=== PATIENT | male | born 1980 | race Caucasian/White ===

== ENCOUNTER 2024-05-04 08:52 | Outpatient (CLI) | payer OTHER, SELFPAY ==
--- NOTE | 2024-05-23 11:05 | WPDHOMESLEEP ---
Sleep Study - Home Unattended Date of Study: 05/04/24 Ordering Provider: Nadira Madsen, PRIVATE DUTY AIDE Interpreting Provider: Jeannette Cotter, DO Home Sleep Study Type: Watch PAT Height: 1.83 m Weight: 77.111 kg Body Mass Index: 23.0 Neck Circumference (inches): 15.25 [place]: 10 Reason for Sleep Study Daytime hypersomnia Sleep History The patient is a 43-year-old male that had a sleep study ordered by his primary care for evaluation of sleep apnea. The patient admits to excessive daytime sleepiness, trouble maintaining sleep and unwanted behaviors during sleep. The patient does snore loudly. He denies interruptions in breathing while asleep. He does choke or gasp at night. He denies having trouble breathing on his back. He does have morning headaches. He does have a dry or sore mouth/ throat in the morning. He does have nocturnal heartburn. He denies nocturia. He denies having trouble falling asleep. He does have difficulty staying asleep. He denies having trouble returning to sleep if he wakes up throughout the night. He denies any hypnotic or sedative use. He does feel anxious about sleep. He does feel tired or sleepy during the day. He does feel tired in the morning. He does have the urge to fall asleep during the day. He does feel drowsy while driving. He denies sleep paralysis, cataplexy and hypnagogic/ hypnopompic hallucinations. He does clench or grind his teeth. He denies kicking or jerking his legs excessively. He denies having a restless feeling in his legs. He goes to bed at 10:00 p.m. every night. he gets 8 hours of sleep on work days and 6 hours of sleep on his days off. His sleep is a little more restorative on his days off. He denies taking any planned naps. He denies acting out his dreams. He has has sleep walking episodes as an adult. He consumes 1-2 caffeinated beverages per day. He consumes more than 3 alcoholic beverages most nights. He smokes 6-20 cigarettes per day. He exercises 1-2 nights per week. Sleep Procedure The sleep study was completed using WatchPAT a technically adequate device with seven channels: peripheral arterial tone, actigraphy, body position, snore, respiratory movement, pulse oximetry, sleep staging, and heart rate. Prior to using the device, the patient received verbal and written instructions for its application and was provided with the help desk phone number for additional telephonic instruction with 24-hour availability of qualified personnel to answer questions. The study was scored using AASM and CMS guidelines. Sleep Architecture The total recording time is 8 hrs, 11 min. The total sleep time is 7 hrs, 37 min. Sleep latency is 22 minutes. REM latency is 70 minutes. The patient had 3 episodes of waking. Sleep architecture shows 15.0% deep sleep, 67.3% light sleep, and (as % Total Sleep Time) showed NREM (Light 67.3%; Deep 15.0%), and a 17.7% stage REM. The patient spent 26.7% of total sleep time in the supine position. Sleep efficiency was 93.08. Respiratory Analysis The overall AHI (pAHI 4%:) is 1.5. The overall AHI (pAHI 3%:) is 7.0. The central AHI is 0.0. The AHI was 5.6 in NREM and 13.3 in REM sleep. The AHI was 10.8 in Supine and 5.5 in Non-supine sleep. Percent of [place] respirations is 0.0. Oximetry Data The oxygen desaturation index (HKARI 4%:) is 1.6. The mean saturation is 94%, and the lowest saturation is 90%. Time spent with saturation < 88% is 0.0 minutes. Snoring Profile Snoring average intensity is 47 dB. The patient snored above 45 decibels for 176.3 minutes, 38.5% of sleep time. Cardiac Profile The average pulse rate is 65 beats per minutes. The lowest pulse rate is 44 bpm. The highest pulse rate reported is 112 bpm. Atrial fibrillation was not detected. Premature beats occur <0.1 per minute. Assessment and Plan Assessment and Plan (1) ROLLY (obstructive sleep apnea): Code(s): G47.33 - Obstructive sleep apnea (adult) (pediatric) Status: Acute Assessment and Plan: Per AASM guidelines, the patient had an overall AHI of 7.0 with desaturation down to 90%. This is consistent with mild sleep apnea. Due to the patient's excessive daytime sleepiness, he qualifies for treatment. I recommend that the patient be prescribed AutoPAP 5-15 cm H2O, CPAP mask/filters/tubing and heated humidity. A mandibular advancement device is also an acceptable treatment option. This should be used with all episodes of sleep.? Compliance should be reviewed within 31-90 days of starting therapy for usage greater than 4 hours per night greater than 70% of the nights. The patient should be asked about symptoms such as?excessive daytime sleepiness, quality of sleep, decreased nocturia, increased?mental functioning such as memory, mood, and concentration. If the patient continues to have sleepwalking episodes despite adequately treating his sleep apnea, I recommend that he consult with Sleep Medicine to ensure that this is not dream enactment behavior. Data The data obtained during this sleep study is adequate for interpretation. Certification This sleep study has been reviewed by a board certified sleep medicine physician.
[2024-05-23 11:14] VITALS: BMI 23.0
== END 2024-05-05 11:26 | disposition home or self-care (01) ==
PROVIDERS: PCP Family Medicine; Visit Provider Nurse Practitioner
DX: G47.10 Hypersomnia, unspecified (principal); G47.33 Obstructive sleep apnea (adult) (pediatric)
CPT/HCPCS: 95800